=== PATIENT | male | born 1995 | race African-American/Black ===

== ENCOUNTER 2017-12-30 10:08 | Outpatient (CLI) | payer OTHER ==
--- NOTE | 2017-12-30 14:26 | Ultrasound Report ---
Testicular ultrasound: The patient presents with a history of his physician feeling a left-sided lump. The patient does not palpate the findings. The right testicle measures 2.2 x 4.0 x 4.3 cm and the left testicle measures 1.9 x 3.6 x 4.1 cm. Both have normal contours and unremarkable echogenicity. Normal blood flow bilaterally. The right epididymis measures 1.1 cm containing a couple of small cysts. The left epididymis measures 11 mm. There is a small right hydrocele and a smaller left hydrocele. Impression: Unremarkable testicles. Small right epididymis cysts. Small hydroceles.
== END 2017-12-30 10:09 | disposition home or self-care (01) ==
LOC: SPVWC 10:08
PROVIDERS: ATTEND Family Medicine
DX: N50.3 Cyst of epididymis (principal); N43.3 Hydrocele, unspecified
CPT/HCPCS: 76870